=== PATIENT | female | born 1960 | race Two or more races ===

== ENCOUNTER 2021-01-16 15:27 | Inpatient (IN) | payer MEDICAID, OTHER ==
[~2021-01-16] VITALS: Ht 157.5 cm; Wt 95.8 kg
[2021-01-16 16:36] LABS: Basophils # (auto) 0 10 ^3/uL (0-0.2); Basophils % (auto) 0.6 % (0.0-2.0); Eosinophils # (auto) 0 10 ^3/uL (0-0.8); Hematocrit 45.6 % (36.0-46.0); Hemoglobin 15.5 g/dL (12.2-16.2); Lymphocytes # (auto) 0.7 10 ^3/uL (0.4-5.4); Lymphocytes % (auto) 20.6 % (10.0-50.0); Mean Corpuscular Hemoglobin 33.2 pg (28.0-32.0); Mean Corpuscular Hgb Conc. 33.9 g/dL (32.0-36.0); Monocytes # (auto) 0.4 10 ^3/uL (0-1.3); Monocytes % (auto) 11.2 % (0.0-12.0); Neutrophils # (auto) 2.2 10 ^3/uL (1.6-8.6); Neutrophils % (auto) 67.6 % (37.0-80.0); Nucleated Red Blood Cells % 0.1 %; Red Blood Cells 4.65 10^6/uL (4.0-5.20); Red Cell Distribution Width 12.2 % (11.8-14.3); White Blood Cell 3.3 10^3/uL (4.4-10.8)
[2021-01-16 16:52] LABS: Albumin 3.5 g/dL (3.4-5.0); Calcium 8.4 mg/dL (8.5-10.1); Potassium 4.5 mmol/L (3.5-5.1)
[2021-01-16 16:55] LABS: BUN/Creatinine Ratio 14.6; Bilirubin, Total 0.2 mg/dL (0.2-1.0); Total Protein 7.7 g/dL (6.4-8.2)
[2021-01-16] MEDS ORDERED: ACETAMINOPHEN 325 MG TAB PO ONE (19:45)
[2021-01-16] MEDS ORDERED: METOCLOPRAMIDE HCL 5MG/ml INJ 2ml VIAL IV ONE (19:45)
[2021-01-16] MEDS ORDERED: SODIUM CHLORIDE 0.9% 1,000 ML IV ONE (19:45)
[2021-01-16] MEDS ORDERED: VANCOMYCIN 1,500 MG in D5W 5% 250 ML IV STA (20:16)
[2021-01-16] MEDS ORDERED: DexAMETHasone SOD PHOS 10MG/1ML VIAL INJ IV ONE (20:30)
[2021-01-16] MEDS ORDERED: PIPERACILLIN-TAZO 4.5GM 100 ML IV ONE (20:30)
[2021-01-16] MEDS ORDERED: VANCOMYCIN 1GM/250ML 500 ML IV ONE (20:49)
[2021-01-17] MEDS ORDERED: NITROGLYCERIN 0.4 MG SL TAB SL PRN
[2021-01-17] MEDS ORDERED: MORPHINE SULFATE INJECTION 2 MG/ML SYRG IV PRN
[2021-01-17] MEDS ORDERED: ONDANSETRON HCL 4 MG/2 ML VIAL IV PRN
[2021-01-17 01:06] VITALS: BP 141/72
[2021-01-17 05:49] VITALS: BP 108/68
[2021-01-17] MEDS ORDERED: ALBUTEROL SULF HFA 90MCG INH 200DOSE IN SCH ×2 (06:00→18:00)
[2021-01-17] MEDS ORDERED: PNEUMOCOCCAL VACC POLYS 25 MCG/0.5 ML VIAL IM ONE (06:15)
[2021-01-17] MEDS ORDERED: INFLUENZA QUAD 2021-2022 0.5 ML SYRG IM ONE (06:15)
[2021-01-17] MEDS ORDERED: SERT50TA19 PO (06:41)
[2021-01-17] MEDS ORDERED: QUET100T47 PO (06:41)
[2021-01-17 09:00] VITALS: BP 126/80
[2021-01-17] MEDS: MULTIPLE VITAMIN TAB PO SCH (09:05)
[2021-01-17] MEDS: ENOXAPARIN SOD 40 MG/0.4 ML SYRINGE SC SCH (09:05)
[2021-01-17] MEDS: ZINC SULFATE 220mg CAP or TAB PO SCH (09:05)
[2021-01-17] MEDS: ASCORBIC ACID 500 MG TAB PO SCH ×2 (09:05→21:32)
[2021-01-17] MEDS: MORPHINE SULFATE 4 MG/ML SYR/VIAL IV PRN (09:43)
[2021-01-17] MEDS ORDERED: DexAMETHasone SOD PHOS 10MG/1ML VIAL INJ IV SCH (10:00)
[2021-01-17 11:06] LABS: Basophils # (auto) 0 10 ^3/uL (0-0.2); Basophils % (auto) 0.2 % (0.0-2.0); Eosinophils # (auto) 0 10 ^3/uL (0-0.8); Hematocrit 43.8 % (36.0-46.0); Hemoglobin 15.1 g/dL (12.2-16.2); Lymphocytes # (auto) 0.6 10 ^3/uL (0.4-5.4); Lymphocytes % (auto) 9.3 % (10.0-50.0); Mean Corpuscular Hgb Conc. 34.5 g/dL (32.0-36.0); Mean Corpuscular Volume 95.9 fL (80.0-100.0); Monocytes # (auto) 0.3 10 ^3/uL (0-1.3); Neutrophils # (auto) 5.6 10 ^3/uL (1.6-8.6); Neutrophils % (auto) 86.5 % (37.0-80.0); Nucleated Red Blood Cells % 0.1 %; Red Blood Cells 4.57 10^6/uL (4.0-5.20); Red Cell Distribution Width 12.4 % (11.8-14.3); White Blood Cell 6.5 10^3/uL (4.4-10.8)
[2021-01-17] MEDS ORDERED: HYDROcodone-ACET 5/325MG TAB PO PRN (11:15)
[2021-01-17] MEDS ORDERED: LACTULOSE 20Gm/30ML SOLN PO PRN (11:15)
[2021-01-17 11:30] LABS: BUN/Creatinine Ratio 18.7; Calcium 8.1 mg/dL (8.5-10.1); Potassium 5.2 mmol/L (3.5-5.1)
[2021-01-17] MEDS: ACETAMINOPHEN 500 MG TAB PO PRN ×2 (11:33→20:18)
[2021-01-17] MEDS ORDERED: CHOL200010 PO (12:45)
[2021-01-17] MEDS ORDERED: ZINC220C8 PO (12:45)
[2021-01-17] MEDS ORDERED: [UNRECOGNIZED DRUG - CODE] XX (12:45)
[2021-01-17] MEDS ORDERED: ASCO500T11 PO (12:45)
[2021-01-17] MEDS ORDERED: ALBUAER3 IN (12:45)
[2021-01-17 13:00] VITALS: BP 114/69
[2021-01-17 17:00] VITALS: BP 113/78
[2021-01-17] MEDS: ALBUTEROL SULF HFA 90MCG INH 200DOSE IN PRN (21:55)
[2021-01-17 22:00] VITALS: BP 125/73
[2021-01-17] MEDS: QUEtiapine FUMARATE 25 MG TAB PO SCH (22:32)
[2021-01-18] MEDS: MORPHINE SULFATE 4 MG/ML SYR/VIAL IV PRN ×4 (04:43→21:23)
[2021-01-18 05:00] VITALS: BP 133/84
[2021-01-18] MEDS: ALBUTEROL SULF HFA 90MCG INH 200DOSE IN PRN ×2 (05:55→20:13)
[2021-01-18] MEDS: MULTIPLE VITAMIN TAB PO SCH (07:44)
[2021-01-18] MEDS: ASCORBIC ACID 500 MG TAB PO SCH ×2 (07:44→21:25)
[2021-01-18] MEDS: ACETAMINOPHEN 500 MG TAB PO PRN (07:44)
[2021-01-18] MEDS: ENOXAPARIN SOD 40 MG/0.4 ML SYRINGE SC SCH (07:44)
[2021-01-18] MEDS: ZINC SULFATE 220mg CAP or TAB PO SCH (07:44)
[2021-01-18 08:00] VITALS: BP 118/69
[2021-01-18] MEDS ORDERED: SERTRALINE HCL 50 MG TAB PO SCH (10:00)
[2021-01-18 12:09] VITALS: BP 115/74
[2021-01-18 16:24] VITALS: BP 115/74
[2021-01-18 17:01] VITALS: BP 112/54
[2021-01-18] MEDS ORDERED: IOHEXOL 350 MG/ML 100ML IJ ONE (17:42)
[2021-01-18] MEDS: QUEtiapine FUMARATE 25 MG TAB PO SCH ×2 (21:25→21:33)
[2021-01-18 21:53] VITALS: BP 118/65
== END 2021-01-18 22:30 | disposition home or self-care (01) | DRG 720 ==
LOC: ER 15:27 → TELE 23:56 → UNDOADMIN 01-17 00:05 → TELE 01-17 00:05 → TELE-EAST 01-17 05:31
PROVIDERS: ADMIT Hospitalist; ATTEND Hospitalist
DX: A41.89 Other specified sepsis (principal); J96.01 Acute respiratory failure with hypoxia; J12.82 Pneumonia due to coronavirus disease 2019; U07.1 COVID-19; F32.A Depression, unspecified; E66.01 Morbid (severe) obesity due to excess calories; J98.11 Atelectasis; R79.1 Abnormal coagulation profile; F41.9 Anxiety disorder, unspecified; Z68.38 Body mass index [BMI] 38.0-38.9, adult; Z82.49 Family history of ischemic heart disease and other diseases of the circulatory system
CPT/HCPCS: 36415; 36600; 71046; 71275; 80048; 80053; 82805; 83605; 85025; 85379; 87040; 87426; 93005; 93970; 94640; 96361; 96365; 96375; G0378; J1100; J2543; J7060

== ENCOUNTER 2022-02-01 07:44 | Emergency (ER) | payer MEDICAID ==
[~2022-02-01] VITALS: Ht 160 cm; Wt 87.0 kg
[~2022-02-01 07:44] MED LIST: ALBUAER3 IN; ASCO500T11 PO; CHOL200010 PO; QUET100T47 PO; SERT50TA19 PO; ZINC220C8 PO; [UNRECOGNIZED DRUG - CODE] XX
[2022-02-01 07:50] VITALS: BP 133/85
[2022-02-01 08:18] LABS: Basophils # (auto) 0 10 ^3/uL (0-0.2); Basophils % (auto) 0.6 % (0.0-2.0); Eosinophils # (auto) 0.1 10 ^3/uL (0-0.8); Eosinophils % (auto) 1.9 % (0.0-7.0); Hematocrit 43.4 % (36.0-46.0); Hemoglobin 14.9 g/dL (12.2-16.2); Lymphocytes # (auto) 0.2 10 ^3/uL (0.4-5.4); Lymphocytes % (auto) 4.6 % (10.0-50.0); Mean Corpuscular Hgb Conc. 34.3 g/dL (32.0-36.0); Mean Corpuscular Volume 96.3 fL (80.0-100.0); Monocytes # (auto) 0.5 10 ^3/uL (0-1.3); Monocytes % (auto) 10.7 % (0.0-12.0); Neutrophils # (auto) 3.9 10 ^3/uL (1.6-8.6); Neutrophils % (auto) 82.2 % (37.0-80.0); Nucleated Red Blood Cells % 0.1 %; Red Cell Distribution Width 12.1 % (11.8-14.3); White Blood Cell 4.8 10^3/uL (4.4-10.8)
[2022-02-01 08:30] LABS: INR 1.01 (0.9-1.15); Partial Thromboplastin Time 26.8 sec (24.6-33.4)
[2022-02-01 08:36] LABS: Albumin 3.7 g/dL (3.4-5.0); BUN/Creatinine Ratio 14.8; Calcium 8.8 mg/dL (8.5-10.1); Potassium 4.3 mmol/L (3.5-5.1)
[2022-02-01 08:39] LABS: Bilirubin, Total 0.5 mg/dL (0.2-1.0); Total Protein 6.9 g/dL (6.4-8.2)
[2022-02-01] MEDS ORDERED: DexAMETHasone SOD PHOS 10MG/1ML VIAL INJ IV ONE (09:00)
[2022-02-01] MEDS ORDERED: ALBUTEROL SULF 2.5 MG/0.5ML(0.5%) NEB SOLN NEB ONE (09:00)
[2022-02-01] MEDS ORDERED: IPRATROPIUM BROM 0.5 MG/2.5ML INH SOL NEB ONE (09:00)
[2022-02-01] MEDS ORDERED: ACETAMINOPHEN 325 MG TAB PO ONE (10:15)
[2022-02-01] MEDS ORDERED: MAGNESIUM SULFATE 1GM/100ML 100 ML IV ONE (10:30)
== END 2022-02-01 11:04 | disposition left against medical advice (07) ==
LOC: ER 07:44
DX: J45.901 Unspecified asthma with (acute) exacerbation (principal); B34.9 Viral infection, unspecified; R00.0 Tachycardia, unspecified; R09.02 Hypoxemia; F41.9 Anxiety disorder, unspecified; F32.9 Major depressive disorder, single episode, unspecified; Z20.822 Contact with and (suspected) exposure to COVID-19
CPT/HCPCS: 36415; 36600; 71045; 80053; 82805; 83605; 84484; 85025; 85610; 85730; 87040; 87426; 87804; 93005; 94640; 99285; J7644